=== PATIENT | male | born 1955 | race Caucasian/White ===

== ENCOUNTER 2016-09-26 10:18 | Day surgery (SDC) | payer OTHER ==
[~2016-09-26] VITALS: Ht 177.8 cm; Wt 84.5 kg
[2016-09-26 10:47] VITALS: Ht 177.8 cm; Wt 84.5 kg
[2016-09-26] MEDS ORDERED: OMEPRAZOLE PO (10:57)
[2016-09-26 11:10] VITALS: BP 136/78; PULSE 72; RESP 18
[2016-09-26] MEDS ORDERED: LIDOCAINE 2% (SDV) 5 ML INJ ONE (11:28)
[2016-09-26] MEDS ORDERED: MIDAZOLAM 1 MG/ML 2 ML INJ ONE (11:28)
[2016-09-26] MEDS ORDERED: PROPOFOL 40 ML ONE (11:28)
[2016-09-26 12:37] VITALS: BP 139/79; PULSE 58; RESP 14
--- NOTE | 2016-10-02 14:04 | GILP ---
DATE OF PROCEDURE: PROCEDURE PERFORMED: 1. Esophagogastroduodenoscopy and biopsy. 2. Colonoscopy and biopsy. SURGEON: Paradise Chowdhury MD. PREOP DIAGNOSES: 1. Abdominal pain. 2. Change in the bowel habits. 3. History of colon polyps. POSTOP DIAGNOSES: 1. Gastritis with erosions. 2. Gastric mucosal biopsies were taken for H. pylori test. 3. Colonoscopy all the way to the cecum. 4. Two small sigmoid colon polyps were removed using the biopsy forceps. 5. Diverticulosis of the colon. 6. Internal hemorrhoids. INDICATION: The patient is a 61-year-old male patient who had upper abdominal pain not responding to therapy. He also noticed change in the bowel habits. He had a history of colon polyps. So the patient was scheduled for endoscopy and colonoscopy for further evaluation. The procedures and possible complications were well explained to the patient. The patient understood and consented to the procedures. PROCEDURE IN DETAIL: Under influence of anesthesia, the gastroscope was carefully introduced into the esophagus. Under direct vision, it was advanced to the stomach into the pylorus into the duodenal bulb and descending duodenum. Findings: Esophagus mucosa was normal. Stomach: The patient had gastritis with erosions. Gastric mucosal biopsies were taken for the H. pylori test. Duodenum was normal. The colonoscope was carefully introduced in the rectum and under direct vision it was advanced all the way to the cecum. Findings: Two small colon polyps, and they were removed using the biopsy forceps. He was noted to have diverticulosis of the colon and internal hemorrhoids. He tolerated the procedures very well. There were no complications from the procedures. At the end of procedure, he was awake, with stable vital signs. He was discharged home in the care of his family. IMPRESSION: 1. Gastritis. 2. Gastric mucosal biopsies were taken for H. pylori test. 3. Colonoscopy evaluated the cecum. 4. Two small sigmoid colon polyps were removed using the biopsy forceps. 5. Diverticulosis of the colon. 6. Internal hemorrhoids. PLAN: 1. Continue omeprazole. 2. Add Zantac 300 mg p.o. q.h.s. 3. Await histopathology reports. 4. Screening colonoscopy in 5 years. Dictated By: MD ALMA [id number]/cindy /Document#: [id number]
== END 2016-09-26 17:30 | disposition home or self-care (01) ==
LOC: GIL 10:18
PROVIDERS: ATTEND Internal Medicine Gastroenterology
DX: K29.70 Gastritis, unspecified, without bleeding (principal); D12.5 Benign neoplasm of sigmoid colon; K57.30 Diverticulosis of large intestine without perforation or abscess without bleeding; K64.8 Other hemorrhoids; R19.4 Change in bowel habit; E78.5 Hyperlipidemia, unspecified
CPT/HCPCS: 43239; 45380; 87081; 88305; J2250